=== PATIENT | male | born 1965 | race African-American/Black ===

== ENCOUNTER 2017-10-21 04:43 | Emergency (ER) | payer BC ==
[2017-10-21] MEDS ORDERED: Ondansetron 4 MG/2 ML SDV IVPUSH ONE (05:05)
[2017-10-21] MEDS ORDERED: Ketorolac 30 MG/ML SDV IVPUSH ONE (05:05)
[2017-10-21] MEDS ORDERED: Sodium Chloride 0.9% 1,000 ML IV ONE (05:05)
--- NOTE | 2017-10-21 05:07 | EDM.PDOC ---
ED HPI GENERAL MEDICAL PROBLEM - General Chief Complaint: Headache Stated Complaint: FEELING WEAK Time Seen by Provider: 10/21/17 05:06 Source of Information: Reports: Patient - History of Present Illness INITIAL COMMENTS - FREE TEXT/NARRATIVE: HISTORY AND PHYSICAL: History of present illness: [Patient presents with a headache which began at 2 AM occipital headache nonradiating he rates 4-5 out of 10. He also complains of dizziness. No fever nausea vomiting chills sweats no chest pain shortness of breath or palpitation no bowel or urine symptoms Patient is in no distress does not elicit pain behavior Post 1 L bolus and Toradol patient is symptom-free] Review of systems: As per history of present illness and below otherwise all systems reviewed and negative. Past medical history: As per history of present illness and as reviewed below otherwise noncontributory. Surgical history: As per history of present illness and as reviewed below otherwise noncontributory. Social history: No reported history of drug or alcohol abuse. Family history: As per history of present illness and as reviewed below otherwise noncontributory. Physical exam: HEENT: Atraumatic, normocephalic, pupils reactive, negative for conjunctival pallor or scleral icterus, mucous membranes moist, throat clear, neck supple, nontender, trachea midline. Lungs: Clear to auscultation, breath sounds equal bilaterally, chest nontender. Heart: S1S2, regular, negative for clicks, rubs, or JVD. Abdomen: Soft, nondistended, nontender. Negative for masses or hepatosplenomegaly. Negative for costovertebral tenderness. Pelvis: Stable nontender. Genitourinary: Deferred. Rectal: Deferred. Extremities: Atraumatic, negative for cords or calf pain. Neurovascular unremarkable. Neuro: Awake, alert, oriented. Cranial nerves II through XII unremarkable. Cerebellum unremarkable. Motor and sensory unremarkable throughout. Exam nonfocal. Diagnostics: [CBC CMP troponin UA Chest [address] no contrast ] Therapeutics: [1 L normal saline Zofran 8 mg IV Toradol 30 mg IV] Impression: [Dizziness] resolved Headache resolved Definitive disposition and diagnosis as appropriate pending reevaluation and review of above. headache Pain Score (Numeric/FACES): 5 - Related Data Allergies Allergy/AdvReac Type Severity Reaction Status Date / Time No Known Allergies Allergy Verified 10/21/17 04:58 Home Meds: Home Meds . [No Known Home Meds] 09/02/16 [History] Past Medical History HEENT History: Reports: None Cardiovascular History: Reports: None Respiratory History: Reports: None, Other (See Below) Gastrointestinal History: Reports: None Other Gastrointestinal History: occasional abd bloating after eating Genitourinary History: Reports: None Musculoskeletal History: Reports: None, Other (See Below) Other Musculoskeletal History: occasional back pain Neurological History: Reports: None Psychiatric History: Reports: None Endocrine/Metabolic History: Reports: None Hematologic History: Reports: None Immunologic History: Reports: None Oncologic (Cancer) History: Reports: None Dermatologic History: Reports: None - Infectious Disease History Infectious Disease History: Reports: None - Past Surgical History Head Surgeries/Procedures: Reports: None - History Comment History Comment: etoh "occasional" Social & Family History - Family History Family Medical History: Noncontributory - Tobacco Use Smoking Status *Q: Never Smoker - Caffeine Use Caffeine Use: Reports: Soda - Recreational Drug Use Recreational Drug Use: No Drug Use in Last 12 Months: No ED ROS GENERAL - Review of Systems Review Of Systems: ROS reveals no pertinent complaints other than HPI. ED EXAM, GENERAL - Physical Exam Exam: See Below Course - Vital Signs Last Recorded V/S: Last Vital Signs Temp 97 F 10/21/17 04:55 Pulse 51 L 10/21/17 06:24 Resp 18 10/21/17 06:24 BP 108/68 10/21/17 06:24 Pulse Ox 100 10/21/17 06:24 - Orders/Labs/Meds Orders: Active Orders 24 hr Category Date Time Status EKG Documentation Completion [RC] STAT Care 10/21/17 04:59 Active Chest 1V Frontal [CR] Stat Exams 10/21/17 05:05 Taken Head wo Cont [CT] Stat Exams 10/21/17 05:05 Taken Labs: Laboratory Tests 10/21/17 10/21/17 10/21/17 Range/Units 05:05 05:18 05:18 WBC 4.50 (4.0-11.0) K/uL RBC 4.57 (4.50-5.90) M/uL Hgb 15.2 (13.0-17.0) g/dL Hct 42.2 (38.0-50.0) % MCV 92.3 (80.0-98.0) fL MCH 33.3 H (27.0-32.0) pg MCHC 36.0 (31.0-37.0) g/dL RDW Std Deviation 40.1 (28.0-62.0) fl RDW Coeff of Eden 12 (11.0-15.0) % Plt Count 161 (150-400) K/uL MPV 10.70 (7.40-12.00) fL Neut % (Auto) 37.3 L (48.0-80.0) % Lymph % (Auto) 47.1 H (16.0-40.0) % Morrill % (Auto) 9.1 (0.0-15.0) % Eos % (Auto) 5.8 (0.0-7.0) % Baso % (Auto) 0.7 (0.0-1.5) % Neut # (Auto) 1.7 (1.4-5.7) K/uL Lymph # (Auto) 2.1 (0.6-2.4) K/uL Morrill # (Auto) 0.4 (0.0-0.8) K/uL Eos # (Auto) 0.3 (0.0-0.7) K/uL Baso # (Auto) 0.0 (0.0-0.1) K/uL Nucleated RBC % 0.0 /100WBC Nucleated RBCs # 0 K/uL Sodium 140 (136-148) mmol/L Potassium 3.4 L (3.5-5.1) mmol/L Chloride 104 (98-107) mmol/L Carbon Dioxide 27.5 (21.0-32.0) mmol/L BUN 16 (7.0-18.0) mg/dL Creatinine 1.0 (0.8-1.3) mg/dL Est Cr Clr Drug Dosing 75.17 mL/min Estimated GFR (MDRD) > 60.0 ml/min Glucose 118 H (74-106) mg/dL Calcium 8.3 L (8.5-10.1) mg/dL Total Bilirubin 0.7 (0.2-1.0) mg/dL AST 22 (15-37) IU/L ALT 26 (14-63) IU/L Alkaline Phosphatase 55 (46-116) U/L Troponin I < 0.050 (0.000-0.056) ng/mL Total Protein 7.0 (6.4-8.2) g/dL Albumin 3.9 (3.4-5.0) g/dL Globulin 3.1 (2.0-3.5) g/dL Albumin/Globulin Ratio 1.3 (1.3-2.8) Urine Color YELLOW Urine Appearance CLEAR Urine pH 5.5 (5.0-8.0) Ur Specific Howell <= 1.005 (1.001-1.035) Urine Protein NEGATIVE (NEGATIVE) mg/dL Urine Glucose (UA) NEGATIVE (NEGATIVE) mg/dL Urine Ketones NEGATIVE (NEGATIVE) mg/dL Urine Occult Blood NEGATIVE (NEGATIVE) Urine Nitrite NEGATIVE (NEGATIVE) Urine Bilirubin NEGATIVE (NEGATIVE) Urine Urobilinogen 0.2 (<2.0) EU/dL Ur Leukocyte Esterase NEGATIVE (NEGATIVE) Urine RBC 0-2 (0-2/HPF) Urine WBC 0-1 (0-5/HPF) Ur Epithelial Cells RARE (NONE-FEW) Urine Bacteria FEW (NEGATIVE) Meds: Medications Discontinued Medications Generic Name Dose Route Start Last Admin Trade Name Nancy PRN Reason Stop Dose Admin Sodium Chloride 1,000 mls @ 999 mls/hr 10/21/17 05:05 10/21/17 05:30 Normal Saline IV 10/21/17 06:05 999 mls/hr STAT ONE Administration Ketorolac Tromethamine 30 mg 10/21/17 05:05 10/21/17 05:32 Toradol IVPUSH 10/21/17 05:06 30 mg ONETIME ONE Administration Ondansetron HCl 8 mg 10/21/17 05:05 10/21/17 05:32 Zofran IVPUSH 10/21/17 05:06 8 mg ONETIME ONE Administration Departure - Departure Time of Disposition: 07:10 Disposition: Home, Self-Care 01 Condition: Good Clinical Impression: Headache - Discharge Information Referrals: PCP,None [Primary Care Provider] - Forms: ED Department Discharge Additional Instructions: [id number] symptomatic therapy such as Tylenol may benefit Fluid hydration Return if symptoms persist or worsen or new concerning symptoms develop Follow up with primary care in 2 weeks sooner as needed Emani Calixto [facility] - Primary [facility] [address] [place] [id number] The following information is given to patients seen in the emergency department who are being discharged to home. This information is to outline your options for follow-up care. We provide all patients seen in our emergency department with a follow-up referral. The need for follow-up, as well as the timing and circumstances, are variable depending upon the specifics of your emergency department visit. If you don't have a primary care physician on staff, we will provide you with a referral. We always advise you to contact your personal physician following an emergency department visit to inform them of the circumstance of the visit and for follow-up with them and/or the need for any referrals to a consulting specialist. The emergency department will also refer you to a specialist when appropriate. This referral assures that you have the opportunity for follow-up care with a specialist. All of these measure are taken in an effort to provide you with optimal care, which includes your follow-up. Under all circumstances we always encourage you to contact your private physician who remains a resource for coordinating your care. When calling for follow-up care, please make the office aware that this follow-up is from your recent emergency room visit. If for any reason you are refused follow-up, please contact the [facility] emergency department at and asked to speak to the emergency department charge nurse. - My Orders Last 24 Hours: My Active Orders 10/21/17 04:59 EKG Documentation Completion [RC] STAT 10/21/17 05:05 Chest 1V Frontal [CR] Stat Head wo Cont [CT] Stat - Assessment/Plan Last 24 Hours: My Active Orders 10/21/17 04:59 EKG Documentation Completion [RC] STAT 10/21/17 05:05 Chest 1V Frontal [CR] Stat Head wo Cont [CT] Stat
[2017-10-21 05:57] LABS: CHLORIDE,CL 104 mmol/L (98-107); SODIUM,NA 140 mmol/L (136-148)
--- NOTE | 2017-10-21 11:10 | CT ---
EXAM DATE: 10/21/17 PATIENT'S AGE: 52 Patient: CAL SCHULER Facility: [place], [place] Site . Site : 1965 Study: CT Head [id number]/14/2018 5:32:43 AM Ordering Physician: Doctor Andre Final Report: INDICATION: Headache, hypertension TECHNIQUE: CT head without contrast. COMPARISON: None FINDINGS: CSF spaces: Within normal limits for age. Brain parenchyma: The saenz-white differentiation is normal. No sign of mass, hemorrhage, or midline shift. Skull base and calvarium: The visualized paranasal sinuses and mastoid air cells demonstrate no acute or significant findings. The visualized orbits are grossly unremarkable. No skull fractures. IMPRESSION: Unremarkable noncontrast head CT. Please note that all CT scans at this facility use dose modulation, iterative reconstruction, and/or weight-based dosing when appropriate to reduce radiation dose to as low as reasonably achievable. Dictated by Анна Sanches MD @ Oct 21 2017 5:48AM (Electronic Signature) Report Signed by Proxy. MTDD
--- NOTE | 2017-10-21 11:11 | CR ---
EXAM DATE: 10/21/17 PATIENT'S AGE: 52 Patient: CAL SCHULER Facility: [place], [place] Site . Site : 1965 Study: XRay Chest [id number]/14/2018 5:33:08 AM Ordering Physician: Doctor Andre Final Report: Indication: Headache, hypertension Technique: Chest 1 view Comparison: October 10, 2014. Findings/Impression: Cardiovascular and mediastinum: Heart size and vasculature are normal in caliber and appearance. Mediastinum is within normal limits. Lungs and pleural space: Lungs are clear. No sign of infiltrate or mass. No sign of pleural effusion. No pneumothorax. Bones and soft tissues: No significant findings. Dictated by Анна Sanches MD @ Oct 21 2017 5:48AM (Electronic Signature) Report Signed by Proxy. JOHANNA
[2017-10-21 15:32] VITALS: BP 113/78
== END 2017-10-21 07:20 | disposition home or self-care (01) ==
LOC: MW.ED 04:43
DX: R51 Headache (principal); R42 Dizziness and giddiness
CPT/HCPCS: 70450; 71045; 80053; 81001; 84484; 85025; 87804; 93005; 96361; 96374; 96375; 99285; J1885; J2405; J7040; 99283

== ENCOUNTER 2017-12-05 09:31 | Emergency (ER) | payer OTHER, BC ==
[2017-12-05 09:53] VITALS: BP 102/52
--- NOTE | 2017-12-05 10:06 | EDM.PDOC ---
ED HPI GENERAL MEDICAL PROBLEM - General Chief Complaint: Upper Extremity Injury/Pain Stated Complaint: RIGHT MIDDLE FINGER SWOLLEN AND PAIN Time Seen by Provider: 12/05/17 09:55 - History of Present Illness INITIAL COMMENTS - FREE TEXT/NARRATIVE: HISTORY AND PHYSICAL: History of present illness: The patient is a 52-year-old male who works here at our facility and believes he is up-to-date on his tetanus and presents after hitting his right third digit yesterday and noticing swelling today. The patient denies any hand pain but only complains of pain to the distal aspect of his right third digit and he is right-hand dominant. 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 He has no systemic complaints Review of systems: As per history of present illness and below otherwise all systems reviewed and negative. Past medical history: As per history of present illness and as reviewed below otherwise noncontributory. Surgical history: As per history of present illness and as reviewed below otherwise noncontributory. Social history: No reported history of drug or alcohol abuse. Family history: As per history of present illness and as reviewed below otherwise noncontributory. Physical exam: General: Well-developed well-nourished man who is nontoxic and vital signs were noted by me HEENT: Atraumatic, normocephalic, negative for conjunctival pallor or scleral icterus, mucous membranes moist, throat clear, neck supple, nontender, trachea midline. Lungs: Clear to auscultation, breath sounds equal bilaterally, chest nontender. Heart: S1S2, regular, 8 and rhythm no overt murmurs Abdomen: Soft, nondistended, nontender. NABS Pelvis: Deferred Genitourinary: Deferred. Rectal: Deferred. Extremities: Atraumatic full range of all extremities with the exception of the right third digit distal phalanx where there is circumferential soft tissue swelling more localized just proximal to the nail and nailbed and there is fluctuance and discrete tenderness in this area, there are no bony deformities and the patient has intact flexion and extension of the digit. There is no soft tissue swelling of the remainder of this digit, right third, and there is visible evidence of very shortened nails secondary to nail biting consistent with the patient's history. Remainder of the hand is without swelling defects redness or tenderness. The legs are, negative for cords or calf pain. Neurovascular unremarkable. Neuro: Awake, alert, oriented. Cranial nerves II through XII unremarkable. Cerebellum unremarkable. Motor and sensory unremarkable throughout. Exam nonfocal. Diagnostics: XR finger Therapeutics: Procedure note: After the procedure was explained to the patient a digital block with 1% lidocaine without epinephrine was placed. The area was prepped with Betadine and using a #11 blade scalpel a linear incision was made just proximal to the cuticle and copious pus was expressed. There were no complications and the patient tolerated the procedure well. Bacitracin and a tube gauze was placed. The procedure was performed by Luz Elena Mejia NP Impression: Paronychia right third digit. Definitive disposition and diagnosis as appropriate pending reevaluation and review of above. right 3rd finger Pain Score (Numeric/FACES): 9 - Related Data Allergies Allergy/AdvReac Type Severity Reaction Status Date / Time No Known Allergies Allergy Verified 12/05/17 09:48 Home Meds: Home Meds . [No Known Home Meds] 09/02/16 [History] Past Medical History HEENT History: Reports: None Cardiovascular History: Reports: None Respiratory History: Reports: None, Other (See Below) Gastrointestinal History: Reports: None Other Gastrointestinal History: occasional abd bloating after eating Genitourinary History: Reports: None Musculoskeletal History: Reports: None, Other (See Below) Other Musculoskeletal History: occasional back pain Neurological History: Reports: None Psychiatric History: Reports: None Endocrine/Metabolic History: Reports: None Hematologic History: Reports: None Immunologic History: Reports: None Oncologic (Cancer) History: Reports: None Dermatologic History: Reports: None - Infectious Disease History Infectious Disease History: Reports: None - Past Surgical History Head Surgeries/Procedures: Reports: None - History Comment History Comment: etoh "occasional" Social & Family History - Family History Family Medical History: Noncontributory - Tobacco Use Smoking Status *Q: Never Smoker - Caffeine Use Caffeine Use: Reports: Soda - Recreational Drug Use Recreational Drug Use: No Drug Use in Last 12 Months: No Review of Systems - Review of Systems Review Of Systems: ROS reveals no pertinent complaints other than HPI. ED EXAM, GENERAL - Physical Exam Exam: See Below (See dictation) Course - Vital Signs Last Recorded V/S: Last Vital Signs Temp 36.1 C 12/05/17 09:40 Pulse 69 12/05/17 09:40 Resp 20 12/05/17 09:40 BP 102/52 L 12/05/17 09:40 Pulse Ox 96 12/05/17 09:40 - Orders/Labs/Meds Orders: Active Orders 24 hr Category Date Time Status Fingers Third Digit Rt F7 [CR] Stat Exams 12/05/17 09:59 Taken Amoxicillin/Clavulanate K [Augmentin 875 MG/125 MG] Med 12/05/17 10:50 Once 1 tab PO ONETIME ONE Medication Orders Amoxicillin/Clavulanate Potassium (Augmentin 875 Mg/125 Mg) 1 tab PO ONETIME ONE Stop: 12/05/17 10:51 Meds: Medications Generic Name Dose Route Start Last Admin Trade Name Freq PRN Reason Stop Dose Admin Amoxicillin/Clavulanate Potassium 1 tab 12/05/17 10:50 Augmentin 875 Mg/125 Mg PO 12/05/17 10:51 ONETIME ONE Discontinued Medications Generic Name Dose Route Start Last Admin Trade Name Freq PRN Reason Stop Dose Admin Bacitracin 1 dose 12/05/17 10:48 Bacitracin Oint 1 Gm TOP 12/05/17 10:49 ONETIME ONE Lidocaine HCl 20 ml 12/05/17 10:07 12/05/17 10:33 Xylocaine 1% INJECT 12/05/17 10:08 20 ml ONETIME ONE Administration Departure - Departure Time of Disposition: 10:51 Disposition: Home, Self-Care 01 Condition: Good Clinical Impression: Paronychia of finger of right hand - Discharge Information Referrals: PCP,None [Primary Care Provider] - Forms: ED Department Discharge Additional Instructions: The following information is given to patients seen in the emergency department who are being discharged to home. This information is to outline your options for follow-up care. We provide all patients seen in our emergency department with a follow-up referral. The need for follow-up, as well as the timing and circumstances, are variable depending upon the specifics of your emergency department visit. If you don't have a primary care physician on staff, we will provide you with a referral. We always advise you to contact your personal physician following an emergency department visit to inform them of the circumstance of the visit and for follow-up with them and/or the need for any referrals to a consulting specialist. The emergency department will also refer you to a specialist when appropriate. This referral assures that you have the opportunity for followup care with a specialist. All of these measure are taken in an effort to provide you with optimal care, which includes your followup. Under all circumstances we always encourage you to contact your private physician who remains a resource for coordinating your care. When calling for followup care, please make the office aware that this follow-up is from your recent emergency room visit. If for any reason you are refused follow-up, please contact the [facility] emergency department at and ask to speak to the emergency department charge nurse. [facility] Specialty clinic-Plastic Surgery and Hand Surgery Professional Building [address] [place] [address] Expect drainage from the area and try to use refrain from biting her fingernails. Please keep the area clean and dry cleansing with mild soap and water pat dry and apply bacitracin or Neosporin. Please take antibiotics as directed. Please call and follow-up with our hand specialist Dr. Lees or your provider in the clinic in the next few days for reevaluation and further care. Return to ER as needed and as discussed - My Orders Last 24 Hours: My Active Orders 12/05/17 09:59 Fingers Third Digit Rt F7 [CR] Stat 12/05/17 10:50 Amoxicillin/Clavulanate K [Augmentin 875 MG/125 MG] 1 tab PO ONETIME ONE - Assessment/Plan Last 24 Hours: My Active Orders 12/05/17 09:59 Fingers Third Digit Rt F7 [CR] Stat 12/05/17 10:50 Amoxicillin/Clavulanate K [Augmentin 875 MG/125 MG] 1 tab PO ONETIME ONE
[2017-12-05] MEDS ORDERED: Lidocaine 1% 20 ML MDV INJECT ONE (10:07)
[2017-12-05] MEDS ORDERED: Bacitracin Oint 1 GM U/D Packet TOP ONE (10:48)
[2017-12-05] MEDS ORDERED: Amoxicillin/Clavulanate K 875-125 MG Tab PO ONE (10:50)
--- NOTE | 2017-12-07 13:31 | CR ---
EXAM DATE: 12/05/17 PATIENT'S AGE: 52 Patient: CAL SCHULER Facility: [place], [place] Site . Site : 1965 Study: XRay Extremity Right 3rd digit [id number]/28/2018 10:18:34 AM Ordering Physician: Jessenia Oakley Final Report: Hip finger on bed. TECHNIQUE: Three views of the right 3rd finger. Mild soft tissue swelling. Normal alignment.no fractures seen. Dictated by Jennifer Flaherty MD @ Dec 05 2017 10:58AM (Electronic Signature) Report Signed by Proxy. JOHANNA
== END 2017-12-05 11:02 | disposition home or self-care (01) ==
LOC: MW.ED 09:31
DX: L03.011 Cellulitis of right finger (principal)
CPT/HCPCS: 10060; 73140; 99283; A9270

== ENCOUNTER 2019-10-08 19:20 | Emergency (ER) | payer BC, OTHER ==
[2019-10-08 19:26] VITALS: BP 124/94; PULSE 73
[2019-10-08] MEDS ORDERED: Diphtheria,Pertussis(Acell),Tetanus Vaccine 0.5 ML Syringe IM ONE (19:48)
[2019-10-08] MEDS ORDERED: Ketorolac 60 MG/2 ML SDV IM ONE (19:48)
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
--- NOTE | 2019-10-08 20:18 | CR ---
Left elbow: 2 views of the left elbow were obtained. Comparison: No prior left elbow study. Joint spaces are maintained. No acute fracture or other bony abnormality is identified. Impression: 1. No abnormality is identified on 2 view left elbow study. Diagnostic code #1 This report was dictated in [place] Standard Time
--- NOTE | 2019-10-08 20:18 | CR ---
Chest: 2 views of the chest were obtained. Comparison: Prior chest x-ray of 10/21/17. Heart size and mediastinum are within normal limits. Lungs are clear with no acute parenchymal change. Bony structures appear within normal limits for the patient's age. Impression: 1. Nothing acute is appreciated on 2 view chest x-ray. Diagnostic code #1 This report was dictated in [place] Standard Time
== END 2019-10-08 21:20 | disposition home or self-care (01) ==
LOC: MW.ED 19:20
DX: S20.212A Contusion of left front wall of thorax, initial encounter (principal); S50.02XA Contusion of left elbow, initial encounter; Y04.8XXA Assault by other bodily force, initial encounter
CPT/HCPCS: 71046; 73070; 90471; 90715; 96372; 99284; J1885; 99283

== ENCOUNTER 2021-12-14 19:56 | Emergency (ER) | payer BC ==
[2021-12-14] MEDS ORDERED: Sodium Chloride 0.9% 2.5 ML Syringe FLUSH PRN (20:50)
[2021-12-14] MEDS ORDERED: Sodium Chloride 0.9% 1,000 ML IV ONE (20:50)
[2021-12-14] MEDS ORDERED: Sodium Chloride 0.9% 10 ML Syringe FLUSH PRN (20:50)
[2021-12-14 21:26] LABS: BLOOD UREA NITROGEN,BUN 9 mg/dL (7.0-18.0); CARBON DIOXIDE,CO2 28.5 mmol/L (21.0-32.0); CHLORIDE,CL 105 mmol/L (98-107); GLUCOSE RANDOM 94 mg/dL (74-106); POTASSIUM,K 3.9 mmol/L (3.5-5.1); SODIUM,NA 140 mmol/L (136-148)
[2021-12-15 02:10] VITALS: BP 126/67; PULSE 71
== END 2021-12-14 23:35 | disposition home or self-care (01) ==
LOC: MW.ED 19:56
DX: R42 Dizziness and giddiness (principal)
CPT/HCPCS: 36415; 70450; 71045; 80053; 81003; 83735; 85025; 85610; 93005; 99284; J3490; J7030

== ENCOUNTER 2021-12-19 08:29 | Emergency (ER) | payer BC ==
[2021-12-19] MEDS ORDERED: Sodium Chloride 0.9% 1,000 ML IV ONE (10:18)
[2021-12-19] MEDS ORDERED: Sodium Chloride 0.9% 10 ML Syringe FLUSH PRN (10:31)
[2021-12-19] MEDS ORDERED: Meclizine 25 MG Tab PO ONE (10:31)
[2021-12-19] MEDS ORDERED: Sodium Chloride 0.9% 2.5 ML Syringe FLUSH PRN (10:31)
[2021-12-19 11:09] LABS: CORONAVIRUS COVID-19 NAA NEGATIVE (NEGATIVE); INFLUENZA A NAA NEGATIVE (NEGATIVE); INFLUENZA B NAA NEGATIVE (NEGATIVE)
[2021-12-19 11:31] LABS: BLOOD UREA NITROGEN,BUN 9 mg/dL (7.0-18.0); CARBON DIOXIDE,CO2 28.8 mmol/L (21.0-32.0); CHLORIDE,CL 103 mmol/L (98-107); GLUCOSE RANDOM 89 mg/dL (74-106); POTASSIUM,K 4.4 mmol/L (3.5-5.1); SODIUM,NA 139 mmol/L (136-148)
[2021-12-19 12:26] VITALS: BP 115/77; PULSE 58
== END 2021-12-19 12:27 | disposition home or self-care (01) ==
LOC: MW.ED 08:29
DX: R42 Dizziness and giddiness (principal); Z20.822 Contact with and (suspected) exposure to COVID-19
CPT/HCPCS: 0240U; 36415; 80053; 81003; 84484; 85025; 85379; 93005; 96360; 99284; A9270; J3490; J7030

== ENCOUNTER 2024-04-29 18:38 | Emergency (ER) | payer BC ==
[2024-04-29] MEDS ORDERED: Sodium Chloride 0.9% 10 ML Syringe FLUSH PRN (19:04)
[2024-04-29 19:28] LABS: BASOPHILS ABSOLUTE AUTO 0.03 K/uL (0.00-0.20); BASOPHILS PERCENT AUTO 0.5 % (0.0-1.0); EOSINOPHILS ABSOLUTE AUTO 0.19 K/uL (0.00-0.45); EOSINOPHILS PERCENT AUTO 3.4 % (0.0-6.0); HEMATOCRIT 39.8 % (42.0-52.0); HEMOGLOBIN 14.5 g/dL (14.0-18.0); IMMATURE GRAN ABSOLUTE AUTO 0.02 K/uL (0.00-0.05); IMMATURE GRAN PERCENT AUTO 0.4 % (0.0-0.4); LYMPHOCYTES ABSOLUTE AUTO 2.57 K/uL (1.00-4.80); LYMPHOCYTES PERCENT AUTO 46.6 % (24.0-44.0); MEAN CORPUSCULAR HEMOGLOBIN 33.3 pg (28.0-32.0); MEAN CORPUSCULAR HGB CONC 36.4 g/dL (32.0-36.0); MEAN CORPUSCULAR VOLUME 91.3 fL (83.0-99.0); MEAN PLATELET VOLUME 10.3 fL (9.4-12.4); MONOCYTES ABSOLUTE AUTO 0.66 K/uL (0.00-0.80); NEUTROPHILS ABSOLUTE AUTO 2.05 K/uL (1.80-7.70); NEUTROPHILS PERCENT AUTO 37.1 % (41.0-71.0); PLATELET COUNT,PLT 178 K/uL (150-400); RED BLOOD CELL COUNT 4.36 M/uL (4.52-5.90); WHITE BLOOD CELL COUNT,WBC 5.52 K/uL (3.9-11.3)
[2024-04-29 19:51] LABS: A/G RATIO 1.1 (0.9-1.6); ALBUMIN 3.6 g/dL (3.4-5.0); BILIRUBIN TOTAL 0.7 mg/dL (0.2-1.0); CALCIUM 8.6 mg/dL (8.5-10.1); CARBON DIOXIDE,CO2 29.1 mmol/L (21.0-32.0); CREATININE 0.8 mg/dL (0.8-1.3); EST CRCL DRUG DOSING (CG) 94.1 mL/min; POTASSIUM,K 3.7 mmol/L (3.5-5.1); PROTEIN TOTAL,TP 6.8 g/dL (6.4-8.2)
[2024-04-29] MEDS: Meclizine 25 MG Tab PO ONE (19:58)
[2024-04-29] MEDS: Iopamidol 755 MG/ML 500 ML Multipack Bottle IVPUSH ONE (20:31)
[2024-04-29] MEDS: Dexamethasone 4 MG Tab PO ONE (21:06)
[2024-04-29 21:26] VITALS: BP 112/88; PULSE 56
== END 2024-04-29 21:24 | disposition home or self-care (01) ==
LOC: MW.ED 18:38
DX: R42 Dizziness and giddiness (principal); Z79.899 Other long term (current) drug therapy
CPT/HCPCS: 36415; 70450; 70496; 70498; 80053; 83735; 85025; 93005; 99284; A9270; J8540; Q9967; 93010

== ENCOUNTER 2024-10-22 19:56 | Emergency (ER) | payer BC ==
[2024-10-22] MEDS: Ibuprofen 800 MG Tab PO ONE (20:32)
[2024-10-22] MEDS: Amoxicillin/Clavulanate K 875-125 MG Tab PO ONE (20:33)
[2024-10-22] MEDS: Diphtheria,Pertussis(Acell),Tetanus Vaccine 0.5 ML Syringe IM ONE (20:33)
[2024-10-22] MEDS: Lidocaine 1% 10 ML MDV INJECT ONE (20:58)
[2024-10-22] MEDS: Bacitracin Oint 28.35 GM Tube TOP STA (21:46)
[2024-10-22 21:47] VITALS: BP 129/49; PULSE 56
== END 2024-10-22 21:50 | disposition home or self-care (01) ==
LOC: MW.ED 19:56
DX: S61.451A Open bite of right hand, initial encounter (principal); S81.851A Open bite, right lower leg, initial encounter; W54.0XXA Bitten by dog, initial encounter
CPT/HCPCS: 12001; 73120; 73590; 90715; 99284; A9270; J2003; 93010

== ENCOUNTER 2024-10-26 11:42 | Emergency (ER) | payer BC ==
[2024-10-26] MEDS ORDERED: Rabies Immune Globulin/PF (HyperRAB) 300 UNIT/ML 1 ML SDV IM ONE (11:58)
[2024-10-26] MEDS: Rabies Vaccine (Avian) 2.5 Unit Inj Kit IM ONE (12:24)
[2024-10-26] MEDS: Rabies Immune Globulin/PF (HyperRAB) 300 UNIT/ML 1 ML SDV IM ONE (12:25)
[2024-10-26] MEDS: Rabies Immune Globulin/PF (HyperRAB) 300 UNIT/ML 5 ML SDV IM ONE (12:27)
[2024-10-26 13:06] VITALS: BP 108/78; PULSE 67
== END 2024-10-26 13:06 | disposition home or self-care (01) ==
LOC: MW.ED 11:42
DX: S61.451D Open bite of right hand, subsequent encounter (principal); S81.851D Open bite, right lower leg, subsequent encounter; Z23 Encounter for immunization; W54.0XXD Bitten by dog, subsequent encounter
CPT/HCPCS: 90375; 90471; 90675; 96372; 99281-25; 99283

== ENCOUNTER 2024-10-30 08:30 | Emergency (ER) | payer BC ==
[2024-10-30 09:25] VITALS: BP 120/65; PULSE 66
== END 2024-10-30 09:25 | disposition left against medical advice (07) ==
LOC: MW.ED 08:30
DX: S61.411D Laceration without foreign body of right hand, subsequent encounter (principal); X58.XXXD Exposure to other specified factors, subsequent encounter
CPT/HCPCS: 99281

== ENCOUNTER 2024-10-30 18:03 | Emergency (ER) | payer BC | END 2024-10-30 19:09 | disposition left against medical advice (07) | LOC: MW.ED 18:03 | DX: Z53.21 Procedure and treatment not carried out due to patient leaving prior to being seen by health care provider (principal) ==

== ENCOUNTER 2024-11-03 14:26 | Emergency (ER) | payer BC ==
[2024-11-03 14:47] VITALS: BP 132/64; PULSE 67
[2024-11-03] MEDS: Rabies Vaccine (Avian) 2.5 Unit Inj Kit IM ONE (14:52)
== END 2024-11-03 15:25 | disposition left against medical advice (07) ==
LOC: MW.ED 14:26
DX: S61.451D Open bite of right hand, subsequent encounter (principal); Z23 Encounter for immunization; W54.0XXD Bitten by dog, subsequent encounter
CPT/HCPCS: 90471; 90675; 99281-25; 99283

== ENCOUNTER 2024-11-05 08:33 | Emergency (ER) | payer BC ==
[2024-11-05 08:47] VITALS: BP 101/72; PULSE 68
== END 2024-11-05 08:49 | disposition left against medical advice (07) ==
LOC: MW.ED 08:33
DX: S61.411D Laceration without foreign body of right hand, subsequent encounter (principal); Z48.02 Encounter for removal of sutures
CPT/HCPCS: 99281